=== PATIENT | female | born 1975 | race American Indian/Alaskan Native ===

== ENCOUNTER 2018-09-11 01:27 | Emergency (ER) | payer OTHER ==
[2018-09-11 01:27] VITALS: BMI 34.4
[2018-09-11 02:06] VITALS: TEMP 98.5
[2018-09-11 04:00] LABS: BASO # 0.1 K/uL (0.0-0.2); BASO % 0.9 % (0.0-2.0); EOS # 0.1 K/uL (0.0-0.7); EOS % 1.8 % (0.0-4.0); HEMOGLOBIN 9.7 g/dL (12.0-16.0); LYMPH # 1.5 K/uL (1.0-4.3); LYMPH % 26.5 % (20.0-40.0); MEAN CELL VOLUME 74.1 fl (81.0-99.0); MEAN CORPUSCULAR HEMOGLOBIN 23.5 pg (27.0-31.0); MEAN CORPUSCULAR HGB CONC 31.8 g/dL (33.0-37.0); MEAN PLATELET VOLUME 8.5 fl (7.2-11.7); MONO # 0.5 K/uL (0.0-0.8); MONO % 8.4 % (0.0-10.0); NEUT # 3.6 K/uL (1.8-7.0); NEUT % 62.4 % (50.0-75.0); NRBC % 0.1 % (0.0-0.0); RBC 4.11 Mil/uL (3.80-5.20); RED CELL DISTRIBUTION WIDTH 14.9 % (11.5-14.5); WHITE BLOOD COUNT 5.7 K/uL (4.8-10.8)
[2018-09-11 04:11] LABS: BLOOD UREA NITROGEN 12 mg/dl (7-17); CALCIUM 9.3 mg/dL (8.4-10.2); GFR NON-AFRICAN AMERICAN > 60
--- NOTE | 2018-09-11 04:57 | ED PDOC ---
HPI: Abdomen Time Seen by Provider: 09/11/18 02:12 Chief Complaint (Nursing): Abdominal Pain Chief Complaint (Provider): Abdominal Pain History Per: Patient History/Exam Limitations: no limitations Onset/Duration Of Symptoms: Hrs (7) Additional Complaint(s): 43 y/o female with history of ovarian torsion on the left, presents to the ED complaining of right lower abdominal pain, onset around 19:00 last night. Patient reports the pain is associated with nausea. Denies vomiting fever, vaginal bleeding, or vaginal discharge. She states the pain feels similar to when she had ovarian torsion. Patient is also complaining of an itchy rash. Past Medical History Reviewed: Historical Data, Nursing Documentation, Vital Signs Vital Signs: Last Vital Signs Temp 98.5 F 09/11/18 02:03 Pulse 108 H 09/11/18 02:03 Resp 16 09/11/18 02:03 BP 133/83 09/11/18 02:03 Pulse Ox 100 09/11/18 02:03 - Medical History PMH: Anemia, Crohn's Disease (states she was tested but not diagnosed), Gastritis, Gall Bladder Disease, Kidney Stones (Lt. renal cyst), Chronic Kidney Disease Other PMH: Ovarian Torsion - Surgical History Surgical History: Cholecystectomy, Endoscopy - Family History Family History: States: Unknown Family Hx - Immunization History Hx Tetanus Toxoid Vaccination: No Hx Influenza Vaccination: No Hx Pneumococcal Vaccination: Yes - Home Medications Home Medications: Ambulatory Orders Medication Instructions Recorded Naproxen [Naprosyn] 1 tab PO BID PRN #20 tab 08/27/18 Ondansetron ODT [Zofran ODT] 1 odt PO BID PRN #6 odt 08/27/18 metFORMIN [glucOPHAGE] 500 mg PO BID 08/27/18 Ibuprofen [Motrin Tab] 600 mg PO Q6 #30 tab 09/11/18 - Allergies Allergies/Adverse Reactions: Allergies Allergy/AdvReac Type Severity Reaction Status Date / Time Penicillins Allergy RASH Verified 08/27/18 03:44 Review of Systems ROS Statement: Except As Marked, All Systems Reviewed And Found Negative Constitutional: Negative for: Fever Gastrointestinal: Positive for: Nausea, Abdominal Pain Genitourinary Female: Negative for: Vaginal Discharge, Vaginal Bleeding Skin: Positive for: Rash Physical Exam - Reviewed Nursing Documentation Reviewed: Yes Vital Signs Reviewed: Yes - Physical Exam Appears: Positive for: No Acute Distress (Comfortable). Negative for: Uncomfortable Head Exam: Positive for: ATRAUMATIC, NORMOCEPHALIC Skin: Positive for: Dry (cracked skin) Eye Exam: Positive for: EOMI, Normal appearance, PERRL Neck: Positive for: Normal, Painless ROM Cardiovascular/Chest: Positive for: Regular Rate, Rhythm. Negative for: Murmur Respiratory: Positive for: Normal Breath Sounds. Negative for: Respiratory Distress Gastrointestinal/Abdominal: Positive for: Soft, Tenderness (RLQ and Right flank). Negative for: Guarding, Rebound Extremity: Positive for: Normal ROM. Negative for: Pedal Edema, Deformity Neurologic/Psych: Positive for: Alert, Oriented. Negative for: Motor/Sensory Deficits - Laboratory Results Result Diagrams: 09/11/18 03:43 09/11/18 03:43 - ECG O2 Sat by Pulse Oximetry: 100 (RA) Pulse Ox Interpretation: Normal Medical Decision Making Medical Decision Making: Time: 02:51 Initial Impression: 43 y/o with abdominal pain. Chart shows multiple visits for abdominal pain with similar presentation with multiple CTs. Most suspicious for acute appendicitis at this time. Will do US to r/o ovarian torsion. Initial Plan: * BMP * ED Urine * CBC w/ diff * Toradol 15 mg * US Transvag 600 US negative Patient feeling better Advised to followup with [facility] appearing upon discharge Scribe Attestation: Documented by Param Krishnan acting as a scribe for Brendon Aburto MD. Provider Scribe Attestation: All medical record entries made by the Scribe were at my direction and personally dictated by me. I have reviewed the chart and agree that the record accurately reflects my personal performance of the history, physical exam, medical decision making, and the department course for this patient. I have also personally directed, reviewed, and agree with the discharge instructions and disposition. Disposition - Clinical Impression Clinical Impression: Pelvic pain - Patient ED Disposition Is Patient to be Admitted: No - Disposition [facility] Disposition: Routine/Home Disposition Time: 06:58 Condition: IMPROVED Prescriptions: Ibuprofen [Motrin Tab] 600 mg PO Q6 #30 tab Instructions: Acute Pelvic Pain (DC) Forms: [employer] ([place])
[2018-09-11 07:33] VITALS: BP 123/78; PULSE 85; RESP 17; O2SAT 98
--- NOTE | 2018-09-11 16:58 | US ---
Date of service: 09/11/2018 HISTORY: RLQ pain, hx of ovarian torsion COMPARISON: None available. TECHNIQUE: FINDINGS: UTERUS: Measures 6.0 x 5.1 x 2.9 cm. Normal in size and appearance, anteverted. No fibroid or other mass lesion seen. ENDOMETRIUM: Measures 2.3 mm in diameter. Unremarkable. CERVIX: 1.2 cm nabothian cyst is seen at the cervix which is otherwise unremarkable. RIGHT OVARY: Measures 2.7 x 2.3 x 1.8 cm. No solid mass. Normal flow. LEFT OVARY: Patient reports prior left oophorectomy. No suspicious left adnexal finding sonographically identified. FREE FLUID: No significant free fluid noted. OTHER FINDINGS: None. IMPRESSION: Left ovary not identified concordant with prior history of left oophorectomy. Unremarkable uterus and endometrium as well as the right ovary.
== END 2018-09-11 07:06 | disposition home or self-care (01) ==
LOC: H.ER 01:27
DX: R10.2 Pelvic and perineal pain (principal); K50.90 Crohn's disease, unspecified, without complications; Z79.84 Long term (current) use of oral hypoglycemic drugs; Z88.0 Allergy status to penicillin
CPT/HCPCS: 76830; 80048; 81025; 85025; 96374; 99283; J1885